=== PATIENT | female | born 1950 | race Caucasian/White ===

== ENCOUNTER 2016-07-23 11:28 | Emergency (ER) | payer OTHER ==
--- NOTE | 2016-07-23 11:35 | PDOC ---
History of Present Illness - General History Source: Patient Exam Limitations: No Limitations - History of Present Illness Initial Comments: 07/23/16 11:53 The patient is a 66 year old female with a significant past medical history of anemia, Breast CA, HLD, who presents to the ED via EMS with left knee pain since. Patient states she was coming down the stairs at work today when she felt a crack in her left knee and couldn't put any pressure on it. She states she had to grab the railing for support. She states the pain is localized in the back of the left knee. Patient reports some discomfort in the knee for the past month. She is scheduled to see an orthopedic physician on July 31, 2016. Patient states her PCP placed her on Vitamin D pills when she last visited him. PCP: Dr. Chambers <Noah Dominguez - Last Filed: 07/23/16 12:07> <Ban Mcdowell - Last Filed: 07/23/16 14:21> - General Chief Complaint: Pain, Acute Stated Complaint: INJURY TO KNEE Time Seen by Provider: 07/23/16 11:34 Past History <Noah Dominguez - Last Filed: 07/23/16 12:07> - Past Medical History Anemia: Yes (MANY YRS AGO) Asthma: No Cancer: Yes (BREAST CA LEFT- 15 YRS) Cardiac Disorders: No CVA: No COPD: No CHF: No Dementia: No Diabetes: No GI Disorders: No Disorders: No HTN: No Hypercholesterolemia: Yes Liver Disease: No Seizures: No Thyroid Disease: No - Surgical History Abdominal Surgery: No Appendectomy: No Cardiac Surgery: No Cholecystectomy: No Lung Surgery: No Neurologic Surgery: No - Psycho/Social/Smoking Cessation Hx Smoking History: Former smoker Have you smoked in the past 12 months: No Hx Alcohol Use: Yes (SOCIAL) Drug/Substance Use Hx: No Substance Use Type: Alcohol <Ban Mcdowell - Last Filed: 07/23/16 14:21> - Past Medical History Allergies/Adverse Reactions: Allergies Allergy/AdvReac Type Severity Reaction Status Date / Time No Known Drug Allergies Allergy Verified 07/23/16 11:33 Home Medications: Ambulatory Orders Simvastatin [Zocor -] 20 mg PO DAILY 07/25/15 Oxycodone HCl/Acetaminophen [Percocet 5-325 mg Tablet] 1 - 2 tab PO Q4H #30 tablet MDD 8 tabs 07/26/15 Ibuprofen 600 mg PO TID PRN #30 tablet 07/23/16 Review of Systems - Review of Systems Able to Perform ROS?: Yes Comments:: 07/23/16 11:53 GENERAL/CONSTITUTIONAL: No fever or chills. No weakness. HEAD, EYES, EARS, NOSE AND THROAT: No change in vision. No ear pain or discharge. No sore throat. CARDIOVASCULAR: No chest pain or shortness of breath. RESPIRATORY: No cough, wheezing, or hemoptysis. GASTROINTESTINAL: No nausea, vomiting, diarrhea or constipation. GENITOURINARY: No dysuria, frequency, or change in urination. MUSCULOSKELETAL: + left knee pain. No neck or back pain. SKIN: No rash NEUROLOGIC: No headache, vertigo, loss of consciousness, or change in strength/ sensation. ENDOCRINE: No increased thirst. No abnormal weight change. HEMATOLOGIC/LYMPHATIC: No anemia, easy bleeding, or history of blood clots. ALLERGIC/IMMUNOLOGIC: No hives or skin allergy. <Noah Dominguez - Last Filed: 07/23/16 12:07> *Physical Exam - Vital Signs Last Vital Signs Temp Pulse Resp BP Pulse Ox 97.8 F 70 18 181/73 100 07/23/16 11:34 07/23/16 11:34 07/23/16 11:34 07/23/16 11:34 07/23/16 11:34 - Physical Exam Comments: 07/23/16 11:54 GENERAL: Awake, alert, and fully oriented, in no acute distress HEAD: No signs of trauma EYES: PERRLA, EOMI, sclera anicteric, conjunctiva clear ENT: Auricles normal inspection, hearing grossly normal, nares patent, oropharynx clear without exudates. Moist mucosa NECK: Normal ROM, supple, no lymphadenopathy, JVD, or masses LUNGS: Breath sounds equal, clear to auscultation bilaterally. No wheezes, and no crackles HEART: Regular rate and rhythm, normal S1 and S2, no murmurs, rubs or gallops ABDOMEN: Soft, nontender, normoactive bowel sounds. No guarding, no rebound. No masses EXTREMITIES: Left knee: active range of motion limited by pain. Can actively go through 90 degrees. Small infrapatellar effusion. Mild tenderness over the patella. No tenderness over patella plateau Rest of extremities: Normal range of motion, no edema. No clubbing or cyanosis. No cords, erythema, or tenderness NEUROLOGICAL: Cranial nerves II through XII grossly intact. Normal speech, normal gait SKIN: Warm, Dry, normal turgor, no rashes or lesions noted. <Noah Dominguez - Last Filed: 07/23/16 12:07> Medical Decision Making - Medical Decision Making 07/23/16 13:03 pt presents to the ED complaining of atraumatic, sudden onset L knee pain. States that she has been feeling some discomfort with bending of the affected knee for several weeks, but today pain became acutely worse while descending the stairs. + pain on active ROM. + mild tenderness without deformity. + tenderness in the posterior aspect of knee. Differential includes ligamentous injury, Kuo's cyst. Will give pain control, check knee xray, likely discharge home with knee imobilizer and NSAIDS if xray is negative. <Ban Mcdowell - Last Filed: 07/23/16 14:21> *DC/Admit/Observation/Transfer - Attestations Scribe Attestion: 07/23/16 11:54 Documentation prepared by Noah Dominguez, acting as medical device sales representative for Ban Mcdowell MD, MD. <Noah Dominguez - Last Filed: 07/23/16 12:07> - Discharge Dispostion Admit: No <Ban Mcdowell - Last Filed: 07/23/16 14:21> Diagnosis at time of Disposition: Strain of knee - Discharge Dispostion Disposition: HOME Condition at time of disposition: Good - Prescriptions Prescriptions: Ibuprofen 600 mg PO TID PRN #30 tablet PRN Reason: Pain - Referrals Referrals: Anthony Chambers MD [Primary Care Provider] - - Patient Instructions Printed Discharge Instructions: DI for Knee Sprain - Post Discharge Activity Work/School Note: Back to Work
[2016-07-23 11:46] VITALS: BP 181/73; PULSE 70; TEMP 97.8; BMI 35.6
[2016-07-23] MEDS ORDERED: IBUPROFEN 600 MG TABLET (FP) PO ONE ×2 (11:53→12:02)
== END 2016-07-23 14:24 | disposition home or self-care (01) ==
LOC: JER 11:28
DX: S83.8X2A Sprain of other specified parts of left knee, initial encounter (principal); X50.1XXA Overexertion from prolonged static or awkward postures, initial encounter; Y93.89 Activity, other specified; Y92.29 Other specified public building as the place of occurrence of the external cause; Y99.0 Civilian activity done for income or pay; E78.00 Pure hypercholesterolemia, unspecified; Z85.3 Personal history of malignant neoplasm of breast
CPT/HCPCS: 73562-TC-LT; 99282-25

== ENCOUNTER 2016-08-08 08:24 | Day surgery (SDC) | payer OTHER ==
[2016-08-07 10:41] VITALS: BMI 36.6
[2016-08-08 08:49] VITALS: TEMP 97.7
--- NOTE | 2016-08-08 08:56 | HP ---
Satellite [facility] - Chief Complaint Chief Complaint: left knee pain - Past Medical History Allergies/Adverse Reactions: Allergies Allergy/AdvReac Type Severity Reaction Status Date / Time No Known Drug Allergies Allergy Verified 08/07/16 10:42 - Current Medications Current Medications: Home Medications Medication Instructions Recorded Simvastatin [Zocor -] 20 mg PO DAILY 07/25/15 Cholecalciferol (Vitamin D3) 2,000 unit PO DAILY 08/07/16 [Vitamin D3] Oxycodone HCl/Acetaminophen 1 - 2 tab PO Q6H #40 tab MDD 8 08/08/16 [Percocet 5-325 mg Tablet -] Satellite Physical Exam - Physical Examination Vital Signs: Vital Signs Period Temp Pulse Resp BP Sys/South Pulse Ox Last 24 Hr 97.7 F 85 18 145/90 96 General Appearance: Well Nourished, Well Developed, Alert & Oriented x3 ENT: Clear Lung: Normal air movement Heart: Regular rate & rhythm Extremities: Other (left knee- + swelling, + ttp ,dec rom, + mcmurrays, + apleys , nvi MRI +mt) Neurological: Intact, Alert, Oriented Satellite Impression/Plan - Impression/Plan Impression: left knee internal derangement Operative Procedure: left knee arthroscopy Date to be Performed: 08/08/16
[2016-08-08] MEDS ORDERED: BUPIVACAINE HCL/PF 0.5% (5MG/ML) 10 ML VIAL ONE (09:52)
[2016-08-08] MEDS ORDERED: oxyCODONE HCL 5 MG TABLET PO PRN (10:01)
[2016-08-08] MEDS ORDERED: PROMETHAZINE HCL 25 MG/1 ML VIAL IVPUSH PRN (10:01)
[2016-08-08] MEDS ORDERED: ONDANSETRON 4 MG/2 ML VIAL IVPUSH PRN (10:01)
[2016-08-08] MEDS ORDERED: LACTATED RINGERS SOLUTION 1,000 ML IV SCH (10:15)
[2016-08-08] MEDS ORDERED: ceFAZolin SODIUM 1 GM VIAL IVPB ONE (10:23)
--- NOTE | 2016-08-08 10:52 | OP ---
Operative Note - Note: Operative Date: 08/08/16 ([facility]) Pre-Operative Diagnosis: left knee internal derangement Operation: left knee arthroscop with PMM, PLM, debridement chondroplasty Post-Operative Diagnosis: Same as Pre-op Surgeon: Sudeep Capellan Anesthesiologist/HEATING ENGINEER: Nixon Landry Anesthesia: General, Local Specimens Removed: shavings Estimated Blood Loss (mls): 5 Operative Report Dictated: Yes
--- NOTE | 2016-08-08 16:08 | OP ---
DATE OF OPERATION: 08/08/2016 PREOPERATIVE DIAGNOSIS: Left knee medial meniscus tear and osteoarthritis. POSTOPERATIVE DIAGNOSIS: Left knee medial meniscus tear and osteoarthritis. Lateral meniscus tear. SURGERY: Left knee arthroscopy, partial medial and lateral meniscectomy and debridement chondroplasty. SURGEON: Vance Cortés M.D. FORM SETTER: None. NURSE SENSORY SCIENTIST: Nixon Landry CRNA ANESTHESIA: MAC anesthesia, local injection of 20 mL 0.5% Marcaine. DRAINS: None. COMPLICATIONS: None. SPECIMEN: None. FLUID REPLACEMENT: 500 mL. INDICATION: The patient is a 66-year-old female with preoperative diagnosis of left knee pain and medial meniscus tear and osteoarthritis. After understanding the potential risks, complications, alternatives, benefits to surgery versus nonsurgical treatment, the patient elected to pursue this procedure. PROCEDURE: The patient was brought to the operating room, peripheral IV placed, IV sedation given. Ample padding was placed throughout. Tourniquet was applied to the left upper thigh, the applied, and she was placed in the C-clamp leg parry. The left lower extremity was prepped and draped in a sterile fashion, elevated, exsanguinated with an Esmarch bandage and tourniquet inflated to 300 mm of mercury. A superior medial outflow portal was established. A lateral portal was established and under direct visualization, medial port was established using a spinal needle. Patient had an oblique tear in the posterior horn in the medial meniscus going almost completely to the periphery. This was debrided with biter forceps and a curved shaver. Photographs taken before and after. There was grade 1 chondromalacia of the medial tibial plateau, grade 2 changes in the medial femoral condyle. Intercondylar notch synovitis; this was debrided as well. The lateral compartment showed the patient did have a small lateral meniscus tear in the body, this was debrided with a curved shaver. There were no defects in the lateral femoral condyle or lateral tibial plateau. In the patellofemoral joint, the patient did have some significant crabmeat effect chondromalacia on the undersurface of the patella, this was with grade 3/grade 4 osteoarthritis, and grade 2-3 changes in the trochlea. Gentle debridement with chondroplasty was performed and synovitis was removed from the patellofemoral joint as well. The area was copiously irrigated and washed out. All instrumentation removed. All excess saline removed. The arthroscopy portals were closed with 3-0 nylon sutures. The areas were washed and dried, covered with Xeroform and 4x4 gauze, Webril and an ROSALINE bandage. The tourniquet was taken down after a total tourniquet time of 20 minutes. There were no complications during the case and the patient tolerated the procedure quite well and was brought to the ambulatory recovery room in stable condition. VANCE CORTÉS M.D. [id number]
[2016-08-08 16:15] VITALS: BP 153/75; PULSE 64
--- NOTE | 2016-08-09 16:22 | PATH ---
Surgical Pathology Report Patient Name: SANDRA SALAS [facility]. Rec. #: [id number] /Age/Gender: 1950 (Age: 66) / F Account: [id number] Location: [facility] SURGICAL Taken: 08/08/2016 Received: 08/08/2016 Reported: 08/09/2016 Physicians: Sudeep Capellan M.D. Specimen(s) Received SHAVINGS LEFT KNEE Clinical History Torn meniscus left knee Final Diagnosis SOFT TISSUE, LEFT KNEE, ARTHROSCOPIC SHAVINGS: SYNOVIUM AND FIBROCARTILAGE WITH MYXOHYALINE DEGENERATION. Electronically Signed Nura Pedraza M.D. Gross Description Received in formalin, labeled "shavings left knee" is a 4.5 x 4.5 x 0.3 cm aggregate of dumont-yellow soft tissue fragments. A jewelry sales representative portion is submitted in one cassette. /08/08/2016 saudi/08/08/2016
== END 2016-08-08 15:30 | disposition home or self-care (01) ==
LOC: JASU-SURG 08:24
PROVIDERS: ATTEND Orthopaedic Surgery
PROC: 0SBD4ZZ Excision of Left Knee Joint, Percutaneous Endoscopic Approach (ICD-10-PCS; 2016-08-08)
PROC: 0SBD4ZZ Excision of Left Knee Joint, Percutaneous Endoscopic Approach (ICD-10-PCS; principal; 2016-08-08 10:00)
DX: M23.204 Derangement of unspecified medial meniscus due to old tear or injury, left knee (principal); M23.201 Derangement of unspecified lateral meniscus due to old tear or injury, left knee; M17.12 Unilateral primary osteoarthritis, left knee
CPT/HCPCS: 88304-TC; 94760; 97116-GP